=== PATIENT | male | born 1960 | race Caucasian/White ===

== ENCOUNTER 2019-02-25 07:30 | Day surgery (SDC) | payer OTHER ==
[2019-02-24 15:00] LABS: Absolute Lymphocytes (CBC) 1.5 K/uL (0.7-4.9); Basophils % 0.7 % (0-1.3); Hematocrit 41.3 % (39.6-49.0); Lymphocytes % 33.2 % (15.3-44.8); RBC Red Blood Cell Count 4.77 M/uL (4.33-5.43)
--- NOTE | 2019-02-24 15:00 | RAD REPORT ---
EXAM DESCRIPTION: RAD - Chest Pa And Lat (2 Views) - 02/24/2019 2:31 pm CLINICAL HISTORY: Preop chest, pending cardioversion COMPARISON: None. TECHNIQUE: PA and lateral views of the chest were obtained. FINDINGS: The lungs are clear. Heart size is normal and central vasculature is within normal limit s. No pleural effusion or pneumothorax seen. No acute bony finding noted. No aortic abnormality. IMPRESSION: No acute cardiopulmonary process.
[2019-02-24 15:04] LABS: Protime INR 1.06
[2019-02-24 15:30] LABS: Potassium 4.2 mmol/L (3.5-5.1)
--- OUTSIDE RECORDS SUMMARY | 2019-02-25 07:32 | XMS REPORT ---
:1960 Author Organization [employer] Care Team Providers Name Role Phone Carson Lev Provider Role Unavailable Allergies, Adverse Reactions, Alerts Substance Reaction Event Type codeine Info Not Available Drug Allergy Problems Problem Type Condition Code Onset Dates Condition Status Assessment Pain, joint, knee, left M25.562 Active Assessment Sprain of other ligament of left S83.8X2A Active knee, initial encounter Medications Medication Code System Code Instructions Start Date End Date Status Dosage Metformin HCl [facility] 38135-018 Active not defined 8- Potassium NDC 0 Active not defined Allopurinol [facility] 30805-683 Active not defined 1- Aspir-81 [facility] 18057-936 Active not defined 7- Amlodipine NDC 0 Active not defined Besylate Results No Known Results Summary Purpose [employer] Submission
[2019-02-25] MEDS ORDERED: NA CHLORIDE 0.9% 500 ML ONE ×3 (08:00→10:03)
[2019-02-25] MEDS ORDERED: FLUMAZENIL 0.1 MG/ML (5 mL VIAL) IV ONE (08:24)
[2019-02-25] MEDS ORDERED: MIDAZOLAM HCL 5 MG/5 ML INJ ONE ×2 (08:36→08:47)
--- NOTE | 2019-02-25 13:34 | EKG ---
Test Date: 2019-02-25 Test Time: 08:40:01 Clinical Radiologist: NEGRO MEASUREMENT RESULTS: Intervals: Rate: 42 MS: 232 QRSD: 102 QT: 470 QTc: 392 [place]: P: 54 MS: 232 QRS: -58 T: 90 INTERPRETIVE STATEMENTS: Marked sinus bradycardia with 1st degree AV block Low voltage QRS Incomplete right bundle branch block Left anterior fascicular block Nonspecific T wave abnormality Abnormal ECG No previous ECG available for comparison Electronically Signed On 02-25-19 13:33:59 CDT by Ervin Dukes
--- NOTE | 2019-02-25 18:58 | OP ---
Surgeon: Ervin Dukes MD [facility] Supervisor: Mr. Jerez. The patient admitted on 02/25/2019, with the diagnosis of atrial fibrillation for direct current card ioversion. The patient has been taking beta-blockers and Xarelto for at least 3 weeks. He was sympt omatic. He was brought to the catheterization laboratory technician as an outpatient. He was given mg of Versed for I V sedation. He received a total 1 shock of 200 joules and he converted to sinus bradycardia. There were no complications. No blood loss. Final Diagnosis: Atrial fibrillation, status post successful cardioversion to sinus rhythm. Plan: The patient will remain on his present medical regimen for now. I will see him in the office in the next week or 2. NIKUNJ/CRISTIAN Voice ID: [id number] Report ID: [id number]
== END 2019-02-25 10:35 | disposition home health service (06) ==
LOC: CCL 07:30
PROC: 5A2204Z Restoration of Cardiac Rhythm, Single (ICD-10-PCS; principal; 2019-02-25)
DX: I48.91 Unspecified atrial fibrillation (principal); I10 Essential (primary) hypertension; E11.9 Type 2 diabetes mellitus without complications; E78.5 Hyperlipidemia, unspecified; M12.9 Arthropathy, unspecified; Z88.6 Allergy status to analgesic agent
CPT/HCPCS: 36415; 71046; 80048; 82962; 85025; 85610; 85730; 92960; 93005; J2250